=== PATIENT | female | born 1975 | race Caucasian/White ===

== ENCOUNTER → 2018-03-21 15:04 | Outpatient (CLI) | payer OTHER, SELFPAY ==
--- NOTE | 2018-03-21 | CER_PTH ---
PATIENT: JACQUELINE KARIMI LOC: [facility] U#:[id number] AGE/SX: 49/F ROOM: RE03/21/[address]: Dr. Concepción Palma MD : 1975 BED: DIS: SPEC #: [id number] RECD: 03/22/18 13:20 STATUS: JUAN CARLOS PRANAY #: [id number] KATHLEEN: 03/21/18 00:[address]: Concepción Palma DEPT: SURGICAL PATHOLOGY RECD BY: Rafy Telles Tissues: Uterine cervix, NOS Procedures: Surgery Specimen Level IV HEADER OPERATION: Removal cervical polyp PRE-OP DIAGNOSIS: Cervical polyp TISSUE SUBMITTED: Cervical polyp MICROSCOPIC DIAGNOSIS Cervical polyp, polypectomy: Benign cervical polyp, inflamed. AM:garrett 03/23/18 MICROSCOPIC DESCRIPTION Slides are reviewed. GROSS DESCRIPTION Received in fixative is one container labeled with the patient's name and designated cervical polyp. The specimen consists of a smooth, glistening, pink-hung polyp measuring 2.8 x 1 x 0.5 cm. The specimen is bisected and totally submitted in one cassette. / AM:garrett 03/22/18 TC:1 CPT: 58665
[2018-03-24 11:53] LABS: HPV Reflexed? NOT INDICATED
== END ==
PROVIDERS: Visit Provider Obstetrics & Gynecology
DX: N84.1 Polyp of cervix uteri (principal); Z12.4 Encounter for screening for malignant neoplasm of cervix
CPT/HCPCS: 88175; 88305; G0145

== ENCOUNTER 2018-05-24 15:13 | Observation (INO) | payer OTHER, SELFPAY ==
[2018-05-18 11:30] LABS: Hematocrit 40.6 % (37-47); Hemoglobin 13.2 g/dl (12.0-15.0); Mean Corp Hgb Conc 32.5 g/gl (32-36); Mean Corpuscular Volume 92.3 fL (81-99); Mean Platelet Vol. 10.3 fl (6.2-12.0); Platelet Count 272 K/mm3 (150-450); RBC Distribution Width CV 12.4 % (11.6-14.6); RBC Distribution Width SD 41.7 fl (35.1-43.9); White Blood Count 4.9 K/mm3 (4.4-11.0)
[2018-05-18 11:32] LABS: Scan Indicated on CBC? Y/N NO
[2018-05-18 11:39] LABS: Prothrombin Time (Protime)PT. 13.1 SECONDS (11.7-14.9)
[2018-05-18 11:40] LABS: Partial Thromboplast Time 28.3 Seconds (24.1-36.2)
[2018-05-24] VITALS (10 sets, daily range): BP systolic 94–130; BP diastolic 52–71; PULSE 54–88; RESP 14–18; TEMP 36.6–37; O2SAT 93–100; BMI 31.4
--- NOTE | 2018-05-24 | HYST_PTH ---
PATIENT: JACQUELINE KARIMI LOC: MS2 U#:[id number] AGE/SX: 42/F [place] [facility] [place] RE05/24/[address]: Dr. Concepción Palma MD : 1975 BED: 1 DIS: 05/25/2018 SPEC #: [id number] RECD: 05/25/18 10:49 STATUS: JUAN CARLOS PRANAY #: [id number] KATHLEEN: 05/24/18 00:[address]: Concepción Palma DEPT: SURGICAL PATHOLOGY RECD BY: Rafy Telles ENTERED: 05/25/18 10:50 SP TYPE: HYSTERECT OTHR DR: No Primary Care Phys Tissues: A - Uterus, NOS B - Skin of abdomen, NOS Procedures: Surgery Specimen Level II Surgery Specimen Level IV Surgery Specimen Level V HEADER OPERATION: Vaginal hysterectomy, posterior repair, excision lesion lower abdomen PRE-OP DIAGNOSIS: Incomplete uterovaginal prolapse; lesion lower abdomen TISSUE SUBMITTED: A - Uterus and vaginal mucosa, B - Lesion on abdomen MICROSCOPIC DIAGNOSIS A. Uterus, hysterectomy: Cervix - squamous metaplasia and mild chronic inflammation. Endometrium - secretory endometrium Myometrium - leiomyomas. Vaginal mucosa, anterior and posterior repair: Mild chronic inflammation. No evidence of dysplasia. B. Skin lesion of abdomen, biopsy: Intradermal nevus. AM:garrett 05/26/18 MICROSCOPIC DESCRIPTION Slides are reviewed. GROSS DESCRIPTION A - Received in fixative is one container labeled with the patient's name and designated uterus. The specimen consists of a morcellated uterus received in nine fragments ranging in size from 3 cm to 9 cm and in aggregate weighing 263 gm. The portion containing the ectocervix is grossly unremarkable and measures 7 cm in length. The endocervical canal is grossly unremarkable. Three fragments resembling vaginal mucosa are present and do not contain mass lesions. No fallopian tubes are attached. A distinct endometrial cavity is not identified. The myometrium appears to measure 2.5 cm in average thickness and contains a single, white rubbery nodule resembling a leiomyoma. This lesion measures 2.2 cm in greatest dimension and on cut surfaces reveals a whorled appearance without areas of cyst formation or necrosis. Sections are submitted in six cassettes as follows: 1 & 2 - anterior and posterior cervix and vaginal mucosa, 3-5 - endometrium and myometrium, 6 - myometrial nodule. B - Received in fixative is one container labeled with the patient's name and designated lesion abdomen. The specimen consists of an irregular fragment of hung skin measuring 1 x 0.5 x 0.2 cm. The specimen is bisected along its long axis and totally submitted in one cassette. / AM:garrett 05/25/18 TC:1 CPT: 02326, 67111, 00923
[2018-05-24 11:17] LABS: Internal QC Validated? YES +Cl - CLEAR BKGD; Pregnancy, Urine Negative Negative
--- NOTE | 2018-05-24 14:30 | PCM.OPRPT ---
Problem List (1) Injury of rectum during surgery Status: Acute Report of Operation Date of Procedure: 05/24/18 Pre-Operative Diagnosis: Intraoperative rectal injury Post-Operative Diagnosis: Same Surgery/Procedure Performed:: Repair of intraoperative rectal injury Description of Surgical Findings:: Patient had an anterior distal rectal injury during transvaginal hysterectomy the opening was just above the anus Description of Procedure: I was called into the operating room to repair an intraoperative injury to the anterior rectum. The hysterectomy part was completed and it was noted that the patient had a defect in the anterior rectum. I performed a digital rectal exam and confirmed that this was a rectal wall injury. Next the lateral aspects of the rectal injury were sutured with an 0 Vicryl suture as stay sutures. The defect was then closed with a running 0 chromic suture in a Warren fashion. A digital rectal exam was performed and this appeared to completely close the rectal defect. Next interrupted 3-0 Vicryl sutures were used to buttress this repair and imbricate the suture line. Once this was completed the suture line was inspected and appeared to be intact. Rectal exam was once again performed and the defect appeared closed. The space technologist then continued with her procedure. Please see her operative report.
--- NOTE | 2018-05-24 14:34 | OP.PCM_ITS ---
Problem List (1) Injury of rectum during surgery Status: Acute Report of Operation Date of Procedure: 05/24/18 Pre-Operative Diagnosis: Intraoperative rectal injury Post-Operative Diagnosis: Same Surgery/Procedure Performed:: Repair of intraoperative rectal injury Description of Surgical Findings:: Patient had an anterior distal rectal injury during transvaginal hysterectomy the opening was just above the anus Description of Procedure: I was called into the operating room to repair an intraoperative injury to the anterior rectum. The hysterectomy part was completed and it was noted that the patient had a defect in the anterior rectum. I performed a digital rectal exam and confirmed that this was a rectal wall injury. Next the lateral aspects of the rectal injury were sutured with an 0 Vicryl suture as stay sutures. The defect was then closed with a running 0 chromic suture in a Warren fashion. A digital rectal exam was performed and this appeared to completely close the rectal defect. Next interrupted 3-0 Vicryl sutures were used to buttress this repair and imbricate the suture line. Once this was completed the suture line was inspected and appeared to be intact. Rectal exam was once again performed and the defect appeared closed. The networks software consultant then continued with her procedure. Please see her operative report.
--- NOTE | 2018-05-24 15:18 | PCM.IMDPSTOP ---
Problem List (1) Uterine prolapse Status: Chronic (2) Enterocele Status: Chronic (3) Rectocele Status: Chronic Immediate Post-Op Note Date of Procedure: 05/24/18 Primary Surgeon/Physician: Concepción Palma body and fender mechanic: Heather Mendoza body and fender mechanic: Linda Cavazos Pre-Operative Diagnosis: Uterine prolapse, incomplete. Rectocele. Enterocele. Incidental rectal injury Post-Operative Diagnosis: Same Surgery/Procedure Performed:: TVH, Enterocele sac ligation, Posterior repair. Repair of intraoperative rectal injury (Dr. Rico) Description of Surgical Findings:: See dictation to follow. Incidental injury to rectum. Dr Rico consulted for repair. Estimated Blood Loss: 350 cc Specimen's removed: uterus includine cervix, morcellated. Vaginal epithelium Drains: Moyer Clear yellow urine 330 + cc for case - Admit VTE Documentation VTE Present on Admission: No VTE Mechan Device Prophylaxis: SCD's VTE Pharm Prophylaxis ordered?: Yes
--- NOTE | 2018-05-24 15:23 | OP.PN_ITS ---
Problem List (1) Uterine prolapse Status: Chronic (2) Enterocele Status: Chronic (3) Rectocele Status: Chronic Immediate Post-Op Note Date of Procedure: 05/24/18 Primary Surgeon/Physician: Concepción Palma fold skiver: Heather Mendoza fold skiver: Linda Cavazos Pre-Operative Diagnosis: Uterine prolapse, incomplete. Rectocele. Enterocele. Incidental rectal injury Post-Operative Diagnosis: Same Surgery/Procedure Performed:: TVH, Enterocele sac ligation, Posterior repair. Repair of intraoperative rectal injury (Dr. Rico) Description of Surgical Findings:: See dictation to follow. Incidental injury to rectum. Dr Rico consulted for repair. Estimated Blood Loss: 350 cc Specimen's removed: uterus includine cervix, morcellated. Vaginal epithelium Drains: Moyer Clear yellow urine 330 + cc for case - Admit VTE Documentation VTE Present on Admission: No VTE Mechan Device Prophylaxis: SCD's VTE Pharm Prophylaxis ordered?: Yes
[2018-05-24] MEDS: Ketorolac 30 MG/ML Syringe IV ×2 (15:44→21:00)
[2018-05-24] MEDS: HYDROmorphone 1 MG/ML Syringe IV ×2 (16:57→23:32)
--- NOTE | 2018-05-24 17:07 | PCM.OP.BLANK ---
Problem List (1) Uterine prolapse Status: Chronic (2) Enterocele Status: Chronic (3) Rectocele Status: Chronic Operative Report Date of Procedure: 05/24/18 PROCEDURE: Vaginal hysterectomy. Posterior repair Enterocele sac ligation repair of incidental injury to anterior rectum (per Dr Rico) Preoperative diagnosis: Symptomatic , incomplete uterovaginal prolapse Grade I uterine prolapse Moderate rectocele Postop diagnosis: Symptomatic , incomplete uterovaginal prolapse Grade I uterine prolapse Moderate rectocele Enterocele sac. Incidental injury to anterior rectum, repaired. Anesthesia: General per Anaid Erazo CRNA , Neil Lizarraga MD and Belle Mendes CRNA Surgeon: Concepción Palma MD Battery Container Finishing Hand: Heather Mendoza, CARRIE Bobby EBL 350 cc Complications: Incidental injury to anterior rectum, near posterior introitus. Drains: Moyer draining clear yellow urine 330 cc. Fluids: replacement LR Findings: On exam under anesthesia, the cervix has mild prolapse and is parous appearing. Normal fallopian tubes and ovaries bilaterally. Moderate rectocele noted, and enterocele sac encountered / noted during surgery. PATH: Uterus, morcellated with fibroids. Detached cervix. Strips of vaginal mucosa. Narrative account: After the risks, benefits and alternatives of the procedure were reviewed with the patient , informed consent was obtained. The patient was taken to the Operating room with an IV running . She was positioned in the dorsal supine position on the operating table and given general anesthesia. Once asleep she was positioned to the dorsal lithotomy position and prepped and draped in the usual sterile fashion. A Moyer catheter was inserted to drain the bladder and left open to drain in the drape. The weighted speculum was placed into the vagina and a single tooth tenaculum was placed at the cervix. The cervical mucosal was then incised circumferentially using Bovie cautery and a knife. The posterior cul de sac was entered by sharp dissection with Mendieta scissors and a weighted speculum was placed into the posterior cul se sac. Dissection then was initiated at the anterior cervix to enter the anterior cul se sac. The anterior cul de sac peritoneum was then entered by sharp dissection and a narrow Mahesh retractor was placed into the anterior cul de sac to retract the bladder out of harm's way for the remainder of the case. The uterosacral ligaments were clamped bilaterally with curved Farooq clamps and the pedicles divided and suture ligated and tagged for later identification. Next the cardinal ligament was clamped bilaterally and divided and suture ligated. Adequate hemostasis was noted. The uterine arteries were clamped bilaterally , divided and suture ligated. Dissection then continued along each side of the uterus. Each pedicle was secured with a Farooq clamp, divided and suture ligated until ultimately the uterine fundus was reached. The superior pedicles on each side were secured with a curved Farooq clamp and the uterus was surgically amputated and set aside. The superior pedicle was then suture ligated, then free tied and tagged for identification. The superior pedicles were dry. There was bleeding noted along the posterior vaginal cuff and along the anterior vaginal cuff . The peritoneum was then closed with a running purse string suture of 1 Vicryl, incorporating the superior pedicles and uterosacral ligament tags. The vaginal cuff was then reapproximated with interrupted and fig of eight stitches of 1-0 Vicryl . Excellent hemostasis was noted. Attention was then turned to the posterior repair A triangular piece of tissue was excised at the posterior vagina / perineal body and the posterior vaginal longitudinal incision was then created using Metzenbaum scissors. The linear incision was carried from the posterior introitus to approx 2 cm proximal to the vaginal cuff repair. The vaginal epithelium was then dissected from the underlying rectovaginal septum. An enterocele sac was encountered and was reduced with a purse string suture of 1-0 Vicryl. At this point, during dissection near the posterior introitus, just inside the vagina an injury was noted to the anterior wall of the rectum. Though this repair may have been made by myself (similar to and obstetric 4th deg laceration repair), Dr. Rico was called in to repair this. Dr. Igor Dickens also briefly looked in to evaluate the injury . The rectal defect was closed in several layers by Dr. Rico (see his dictation). The remained fo the rectocele repair was then completed. Ivy plication stitches of 1-0 Vicryl were then placed reducing the rectocele. The area over the rectal injury repair was reinforced additionally with another layer of suture, further plicating the rectovaginal septum over the rectal defect repair. The posterior vaginal mucosa was then trimmed and the linear incision closed with 2-0 chromic in a running locked fashion. Excelled hemostasis was noted. A vaginal packing was then inserted: 1 plain gauze with Premarin cream. The Moyer was attached to the Moyer bag and clear yellow urine returned. A peripad was applied. The patient was returned to dorsal supine position and awakened from general anesthesia. She was then transferred to the recovery room bed in stable condition after tolerating the procedure well. Sponge, lap, needle and instrument counts correct times two. Medications given preop and intraoperatively included: Cefotetan 2 gm IV was given senior qa automation engineer to the operating room . For a complete listing of medications given preop and intraoperatively, please see the anesthesia record.
[2018-05-24] MEDS: Lactated Ringers 1,000 ML 125 ML IV (19:37)
[2018-05-24] MEDS: Docusate Sodium 100 MG Capsule PO (21:00)
[2018-05-24] MEDS: 0.9% NaCl Peripheral Flush Adult/Peds IV ×2 (21:01→23:33)
--- NOTE | 2018-05-25 00:44 | PCM.DC.VHY ---
Discharge Diet: No Restrictions Discharge Activity: May not drive while taking narcotic pain medications., May Shower, May Take a Tub Bath Return to work on:: 07/10/18 May resume sexual activity in: 4-6 weeks Lifting Restrictions: 20# or less for 4-6 wk to allow healing. 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 Nothing in vagina and avoid lifting more than 20# for 4-6 wk to allow healing. OK to go up and down stairs as comfortable. You may take Tylenol (500 mg tabs) 1-2 every 6 hrs as needed for milder pain. Add Naproxen for mild to moderate pain. In addition, take Oxycodone for more severe pain. Remain on Miralax daily and Colace twice daily as needed to keep stool soft for at least two weeks. Allergies/Adverse Reactions: Allergies No Known Allergies Allergy (Verified 05/17/18 09:57) Medications to take at Discharge Acetaminophen [Tylenol] 1,000 mg PO Q8H PRN PRN tablet 05/25/18 Docusate Sodium [Colace] 100 mg PO BID #30 capsule 05/25/18 Naproxen [Naprosyn] 250 - 500 mg PO TID PRN #30 tablet 05/25/18 Oxycodone [Oxyir] 5 - 10 mg PO Q4H PRN PRN 7 Days #20 tab 05/25/18 Polyethylene Glycol 3350 [Miralax] 17 gm PO DAILY #1 bottle 05/25/18 The following prescriptions were given: Oxycodone [Oxyir] 5 - 10 mg PO Q4H PRN PRN 7 Days #20 tab PRN Reason: Mod-Severe Pain (-05/03) Polyethylene Glycol 3350 [Miralax] 17 gm PO DAILY #1 bottle Docusate Sodium [Colace] 100 mg PO BID #30 capsule Naproxen [Naprosyn] 250 - 500 mg PO TID PRN #30 tablet PRN Reason: Mild-Mod Pain (-12/01) Primary Care Physician: Care Physician,No Primary [Primary Care Provider] - Test Results: Test results from this visit will be discussed in further detail at your follow-up appointment, if applicable. Please Follow Up With: Concepción Palma MD - [phone] When: two weeks for postoperative appointment. Proposed Discharge Date: 05/25/18
--- NOTE | 2018-05-25 00:48 | DCINST_ITS ---
Discharge Diet: No Restrictions Discharge Activity: May not drive while taking narcotic pain medications., May Shower, May Take a Tub Bath Return to work on:: 07/10/18 May resume sexual activity in: 4-6 weeks Lifting Restrictions: 20# or less for 4-6 wk to allow healing. Call your doctor if you observe: Fever of 101 or Higher, Inability to have a bowel movement, Using more than one pad per hour, Calf discomfort, Uncontrolled pain Additional Instructions: You may resume case management specialist activity as tolerated. Nothing in vagina and avoid lifting more than 20# for 4-6 wk to allow healing. OK to go up and down stairs as comfortable. You may take Tylenol (500 mg tabs) 1-2 every 6 hrs as needed for milder pain. Add Naproxen for mild to moderate pain. In addition, take Oxycodone for more severe pain. Remain on Miralax daily and Colace twice daily as needed to keep stool soft for at least two weeks. Allergies/Adverse Reactions: Allergies No Known Allergies Allergy (Verified 05/17/18 09:57) Medications to take at Discharge Acetaminophen [Tylenol] 1,000 mg PO Q8H PRN PRN tablet 05/25/18 Docusate Sodium [Colace] 100 mg PO BID #30 capsule 05/25/18 Naproxen [Naprosyn] 250 - 500 mg PO TID PRN #30 tablet 05/25/18 Oxycodone [Oxyir] 5 - 10 mg PO Q4H PRN PRN 7 Days #20 tab 05/25/18 Polyethylene Glycol 3350 [Miralax] 17 gm PO DAILY #1 bottle 05/25/18 The following prescriptions were given: Oxycodone [Oxyir] 5 - 10 mg PO Q4H PRN PRN 7 Days #20 tab PRN Reason: Mod-Severe Pain (-05/03) Polyethylene Glycol 3350 [Miralax] 17 gm PO DAILY #1 bottle Docusate Sodium [Colace] 100 mg PO BID #30 capsule Naproxen [Naprosyn] 250 - 500 mg PO TID PRN #30 tablet PRN Reason: Mild-Mod Pain (-12/01) Primary Care Physician: Care Physician,No Primary [Primary Care Provider] - Test Results: Test results from this visit will be discussed in further detail at your follow-up appointment, if applicable. Please Follow Up With: Concepción Palma MD - [phone] When: two weeks for postoperative appointment. Proposed Discharge Date: 05/25/18
[2018-05-25 03:02] VITALS: BP 103/56; PULSE 96; RESP 18; TEMP 36.8; O2SAT 96
[2018-05-25] MEDS: 0.9% NaCl Peripheral Flush Adult/Peds IV ×2 (03:05→09:02)
[2018-05-25] MEDS: Ketorolac 30 MG/ML Syringe IV ×2 (03:05→09:02)
[2018-05-25] MEDS: Lactated Ringers 1,000 ML 125 ML IV (03:05)
[2018-05-25 05:28] LABS: Hematocrit 28.8 % (37-47); Hemoglobin 9.5 g/dl (12.0-15.0); Mean Corpuscular Hgb 30.3 pg (27.0-32.0); Mean Corpuscular Volume 91.7 fL (81-99); Mean Platelet Vol. 10.3 fl (6.2-12.0); Platelet Count 236 K/mm3 (150-450); RBC Distribution Width CV 12.4 % (11.6-14.6); RBC Distribution Width SD 41.5 fl (35.1-43.9); Red Blood Count 3.14 M/mm3 (4.2-5.4); White Blood Count 10.6 K/mm3 (4.4-11.0)
[2018-05-25 05:52] LABS: Creatinine, Serum 0.64 mg/dL (0.55-1.02); EST Glomerular Filtration Rate 109 mL/min (>60); Est Glom Filt Rate - Afr Amer 132 mL/min (>60)
[2018-05-25 06:12] LABS: Scan Indicated on CBC? Y/N NO
[2018-05-25] MEDS: oxyCODONE 5 MG Tablet PO (06:37)
--- NOTE | 2018-05-25 06:51 | NURSING ---
Moyer catheter dc'd per physicians order. pt tolerated well.
--- NOTE | 2018-05-25 08:06 | PN_ITS ---
Patient Problems: Active and Suspected Problems Injury of rectum during surgery (Acute) S/P vaginal hysterectomy (Acute) Subjective: POD#1 S/P TVH, Ligation of enterocele sac. Posterior repair, Repair of incidental rectal injury Excision of skin mole from lower abdomen. Doing well. Just back to bed after trip around the unit. States tired. Moyer out for voiding trial. Denies N/V. + flatus. - Physical Exam General: Alert, Oriented x3, Cooperative, No apparent distress HEENT: Atraumatic Neck: Supple Skin: Incision - Op site lower abdomen CDI (mole excision) Neurological: Cranial nerves II-XII grossly intact Psych/Mental Status: Normal Affect Comment: Vaginal packing removed. minimal old blood noted. Vital Signs Temp Pulse Resp BP Pulse Ox 98.2 F 96 18 103/56 L 96 05/25/18 03:02 05/25/18 03:02 05/25/18 03:02 05/25/18 03:02 05/25/18 03:02 Oxygen Flow Rate (L/min) 2 Oxygen Delivery Method Room Air Weight: 102.4 kg Body Mass Index (BMI) 31.4 Intake and Output for Last 24 Hours 05/23/18 05/24/18 05/25/18 23:59 23:59 23:59 Intake Total 5311 / 5311 1448 / 1448 Output Total 1430 / 1430 1200 / 1200 Balance 3881 / 3881 248 / 248 Laboratory Tests Past 24 Hrs 05/24/18 05/25/18 05/25/18 11:07 05:05 05:05 WBC 10.6 RBC 3.14 L Hgb 9.5 L Hct 28.8 L MCV 91.7 MCH 30.3 MCHC 33.0 RDW 12.4 RDW Differential 41.5 Plt Count 236 MPV 10.3 Creatinine 0.64 Estim Creat Clear Calc 130.60 Est GFR (MDRD) Af Amer 132 Est GFR (MDRD) Non-Af 109 Urine Test Negative Medical Necessity - Tobacco Use Smoking Status: Never smoker Assessment/Plan All Active Problems Injury of rectum during surgery (Acute) S/P vaginal hysterectomy (Acute) POD#1 TVH, Posterior repair enterocele sac ligation. repair of incidental rectal injury and excision of mole from lower abdomen. Stable postop. AVSS Ambulating well. NAD. Reviewed all operative findings and surgical complication with patient. Advised re activity restrictions postop and need to keep bowel movements soft for 2 wks. RX all sent in to [facility] pharmacy Acute Blood Loss anemia CBC with anemia as expected 2/2 blood loss at surgery and IV hydration. Iron daily for one month Voiding trial in progress. Inc diet and activity as tolerated. D/C home today if voiding well, pain control adequate, tolerating PO. RTO in 2 wk for postop check up.
--- NOTE | 2018-05-25 08:10 | PCM.DC.SUM ---
Discharge Date and Diagnosis - Problem List Patient Problems: Active and Suspected Problems Injury of rectum during surgery (Acute) S/P vaginal hysterectomy (Acute) - Primary Discharge Diagnosis Active and Suspected Problems Injury of rectum during surgery (Acute) S/P vaginal hysterectomy (Acute) - Secondary Discharge Diagnosis Chronic Problems Uterine prolapse (Chronic) Enterocele (Chronic) Rectocele (Chronic) Hospital Course and Treatment Operations: hysterectomy - Posterior repair, enterocele sac ligation. Repair incidental rectal injury (Dr Rico). Excision of mole lower abdomen. Summary of Care Provided: The patient is a 42 year female with symptomatic uterovaginal prolapse presents for TVH, Possible anterior / posterior repair. Large uterus with incomplete prolapse. TVH completed. Enterocele sac noted during posterior repair. Incidental rectal injury during posterior repair. Enterocele sac ligation and posterior repair completed after rectal injury repair. Mole removed from lower abdomen. Postop course uneventful. Vaginal packing removed. Voiding trial in progress. AVSS Acute blood loss anemia noted postop and ferrous sulfate prescribed. Home on POD#1 if criteria met. RTO in 2 wk for postop follow up appt, prn sooner. Patient Problems: Active and Suspected Problems Injury of rectum during surgery (Acute) S/P vaginal hysterectomy (Acute) - Physical Exam Vital Signs Temp Pulse Resp BP Pulse Ox 98.2 F 96 18 103/56 L 96 05/25/18 03:02 05/25/18 03:02 05/25/18 03:02 05/25/18 03:02 05/25/18 03:02 Oxygen Flow Rate (L/min) 2 Oxygen Delivery Method Room Air Weight: 102.4 kg Body Mass Index (BMI) 31.4 Intake and Output for Last 24 Hours 05/23/18 05/24/18 05/25/18 23:59 23:59 23:59 Intake Total 5311 / 5311 1448 / 1448 Output Total 1430 / 1430 1200 / 1200 Balance 3881 / 3881 248 / 248 Laboratory Tests Past 24 Hrs 05/24/18 05/25/18 05/25/18 11:07 05:05 05:05 WBC 10.6 RBC 3.14 L Hgb 9.5 L Hct 28.8 L MCV 91.7 MCH 30.3 MCHC 33.0 RDW 12.4 RDW Differential 41.5 Plt Count 236 MPV 10.3 Creatinine 0.64 Estim Creat Clear Calc 130.60 Est GFR (MDRD) Af Amer 132 Est GFR (MDRD) Non-Af 109 Urine Test Negative Discharge Diet: No Restrictions Discharge Activity: May not drive while taking narcotic pain medications., May Shower, May Take a Tub Bath Return to work on:: 07/10/18 May resume sexual activity in: 4-6 weeks Call your doctor if you observe: Fever of 101 or Higher, Inability to have a bowel movement, Using more than one pad per hour, Calf discomfort, Uncontrolled pain Home Medications: Medications to take at Discharge Acetaminophen [Tylenol] 1,000 mg PO Q8H PRN PRN tablet 05/25/18 Docusate Sodium [Colace] 100 mg PO BID #30 capsule 05/25/18 Ferrous Sulfate 325 mg PO DAILY@0800 #30 tablet 05/25/18 Naproxen [Naprosyn] 250 - 500 mg PO TID PRN #30 tablet 05/25/18 Oxycodone [Oxyir] 5 - 10 mg PO Q4H PRN PRN 7 Days #20 tab 05/25/18 Polyethylene Glycol 3350 [Miralax] 17 gm PO DAILY #1 bottle 05/25/18 Following Prescrptions Were Given to Patient: Oxycodone [Oxyir] 5 - 10 mg PO Q4H PRN PRN 7 Days #20 tab PRN Reason: Mod-Severe Pain (-05/03) Ferrous Sulfate 325 mg PO DAILY@0800 #30 tablet Polyethylene Glycol 3350 [Miralax] 17 gm PO DAILY #1 bottle Docusate Sodium [Colace] 100 mg PO BID #30 capsule Naproxen [Naprosyn] 250 - 500 mg PO TID PRN #30 tablet PRN Reason: Mild-Mod Pain (-12/01) Primary Care Physician: Care Physician,No Primary [Primary Care Provider] - Please Follow Up With: Concepción Palma MD - [phone] When: two weeks for postoperative appointment. 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 Nothing in vagina and avoid lifting more than 20# for 4-6 wk to allow healing. OK to go up and down stairs as comfortable. You may take Tylenol (500 mg tabs) 1-2 every 6 hrs as needed for milder pain. Add Naproxen for mild to moderate pain. In addition, take Oxycodone for more severe pain. Remain on Miralax daily and Colace twice daily as needed to keep stool soft for at least two weeks. Medical Necessity - Tobacco Use Smoking Status: Never smoker Meaningful Use Info Meaningful Use Diagnoses (Choose all that apply): None applicable
--- NOTE | 2018-05-25 08:15 | DS.PCM_ITS ---
Discharge Date and Diagnosis - Problem List Patient Problems: Active and Suspected Problems Injury of rectum during surgery (Acute) S/P vaginal hysterectomy (Acute) - Primary Discharge Diagnosis Active and Suspected Problems Injury of rectum during surgery (Acute) S/P vaginal hysterectomy (Acute) - Secondary Discharge Diagnosis Chronic Problems Uterine prolapse (Chronic) Enterocele (Chronic) Rectocele (Chronic) Hospital Course and Treatment Operations: hysterectomy - Posterior repair, enterocele sac ligation. Repair incidental rectal injury (Dr Rico). Excision of mole lower abdomen. Summary of Care Provided: The patient is a 42 year female with symptomatic uterovaginal prolapse presents for TVH, Possible anterior / posterior repair. Large uterus with incomplete prolapse. TVH completed. Enterocele sac noted during posterior repair. Incidental rectal injury during posterior repair. Enterocele sac ligation and posterior repair completed after rectal injury repair. Mole removed from lower abdomen. Postop course uneventful. Vaginal packing removed. Voiding trial in progress. AVSS Acute blood loss anemia noted po stop and ferrous sulfate prescribed. Home on POD#1 if criteria met. RTO in 2 wk for postop follow up appt, prn sooner. Patient Problems: Active and Suspected Problems Injury of rectum during surgery (Acute) S/P vaginal hysterectomy (Acute) - Physical Exam Vital Signs Temp Pulse Resp BP Pulse Ox 98.2 F 96 18 103/56 L 96 05/25/18 03:02 05/25/18 03:02 05/25/18 03:02 05/25/18 03:02 05/25/18 03:02 Oxygen Flow Rate (L/min) 2 Oxygen Delivery Method Room Air Weight: 102.4 kg Body Mass Index (BMI) 31.4 Intake and Output for Last 24 Hours 05/23/18 05/24/18 05/25/18 23:59 23:59 23:59 Intake Total 5311 / 5311 1448 / 1448 Output Total 1430 / 1430 1200 / 1200 Balance 3881 / 3881 248 / 248 Laboratory Tests Past 24 Hrs 05/24/18 05/25/18 05/25/18 11:07 05:05 05:05 WBC 10.6 RBC 3.14 L Hgb 9.5 L Hct 28.8 L MCV 91.7 MCH 30.3 MCHC 33.0 RDW 12.4 RDW Differential 41.5 Plt Count 236 MPV 10.3 Creatinine 0.64 Estim Creat Clear Calc 130.60 Est GFR (MDRD) Af Amer 132 Est GFR (MDRD) Non-Af 109 Urine Test Negative Discharge Diet: No Restrictions Discharge Activity: May not drive while taking narcotic pain medications., May Shower, May Take a Tub Bath Return to work on:: 07/10/18 May resume sexual activity in: 4-6 weeks Call your doctor if you observe: Fever of 101 or Higher, Inability to have a bowel movement, Using more than one pad per hour, Calf discomfort, Uncontrolled pain Home Medications: Medications to take at Discharge Acetaminophen [Tylenol] 1,000 mg PO Q8H PRN PRN tablet 05/25/18 Docusate Sodium [Colace] 100 mg PO BID #30 capsule 05/25/18 Ferrous Sulfate 325 mg PO DAILY@0800 #30 tablet 05/25/18 Naproxen [Naprosyn] 250 - 500 mg PO TID PRN #30 tablet 05/25/18 Oxycodone [Oxyir] 5 - 10 mg PO Q4H PRN PRN 7 Days #20 tab 05/25/18 Polyethylene Glycol 3350 [Miralax] 17 gm PO DAILY #1 bottle 05/25/18 Following Prescrptions Were Given to Patient: Oxycodone [Oxyir] 5 - 10 mg PO Q4H PRN PRN 7 Days #20 tab PRN Reason: Mod-Severe Pain (-05/03) Ferrous Sulfate 325 mg PO DAILY@0800 #30 tablet Polyethylene Glycol 3350 [Miralax] 17 gm PO DAILY #1 bottle Docusate Sodium [Colace] 100 mg PO BID #30 capsule Naproxen [Naprosyn] 250 - 500 mg PO TID PRN #30 tablet PRN Reason: Mild-Mod Pain (-12/01) Primary Care Physician: Care Physician,No Primary [Primary Care Provider] - Please Follow Up With: Cnocepción Palma MD - [phone] When: two weeks for postoperative appointment. 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 Nothing in vagina and avoid lifting more than 20# for 4-6 wk to allow healing. OK to go up and down stairs as comfortable. You may take Tylenol (500 mg tabs) 1-2 every 6 hrs as needed for milder pain. Add Naproxen for mild to moderate pain. In addition, take Oxycodone for more severe pain. Remain on Miralax daily and Colace twice daily as needed to keep stool soft for at least two weeks. Medical Necessity - Tobacco Use Smoking Status: Never smoker Meaningful Use Info Meaningful Use Diagnoses (Choose all that apply): None applicable
[2018-05-25 08:51] VITALS: O2SAT 96
[2018-05-25 08:54] VITALS: BP 121/70; PULSE 91; RESP 16; TEMP 36.7; O2SAT 100
[2018-05-25] MEDS: Acetaminophen 500 MG Tablet 1000 MG PO (09:03)
[2018-05-25] MEDS: Polyethylene Glycol 3350 17 GM PACKET PO (09:03)
[2018-05-25] MEDS: Enoxaparin 40 MG/0.4 ML Syringe SC (09:04)
[2018-05-25] MEDS: Docusate Sodium 100 MG Capsule PO (09:04)
== END 2018-05-25 12:50 | disposition home or self-care (01) ==
LOC: SDC 05-25 10:21 → MS2 05-25 10:21
PROVIDERS: Anesthesiology; Admitting Provider Obstetrics & Gynecology; Referring Provider Obstetrics & Gynecology; Visit Provider Obstetrics & Gynecology
PROC: (CPT 58260; principal; 2018-05-24 12:10)
DX: N81.2 Incomplete uterovaginal prolapse (principal); K91.72 Accidental puncture and laceration of a digestive system organ or structure during other procedure; D22.9 Melanocytic nevi, unspecified; D62 Acute posthemorrhagic anemia; D25.9 Leiomyoma of uterus, unspecified
CPT/HCPCS: 00940; 11422; 45999; 57250; 58290; 36415; 81025; 82565; 85027; 85610; 85730; 86850; 86900; 88302; 88305; 88307; 96361; 96372; 96374; 96375; 96376; 99218; J7120; A4216; G0378; G0379; J2405